=== PATIENT | male | born 1935 | race Caucasian/White ===

== ENCOUNTER 2022-06-27 11:27 | Inpatient (IN) ==
[2022-06-29 05:39] LABS: Basophils % 0.3 %; Eosinophils # 0.4 K/mcL (0.0-0.6); Eosinophils % 5.5 %; Hematocrit 34.8 % (37.5-50.1); Immature Granulocytes % 0.3 % (0-4); Lymphocytes # 0.9 K/mcL (0.6-4.6); Lymphocytes % 13.1 %; Mean Corpuscular HGB Conc 34.5 g/dL (31.6-35.5); Mean Corpuscular Hemoglobin 30.1 pg (28.0-33.3); Mean Corpuscular Volume 87.2 fL (83.0-100.0); Mean Platelet Volume 10.4 fL (9.4-12.4); Monocytes # 1.1 K/mcL (0.0-1.3); Monocytes % 15.2 %; Neutrophils # 4.6 K/mcL (1.6-8.9); Platelet Count 211 K/mcL (140-400); Red Blood Count 3.99 M/mcL (4.19-5.50); Red Cell Distribution Width 12.3 % (11.5-14.5); Segmented Neutrophils % 65.6 %
[2022-06-29 05:50] LABS: Alanine Aminotransferase 23 Units/L (7-52); Albumin 3.1 g/dL (3.5-5.7); Albumin/Globulin Ratio 1.2 (1.1-2.2); Alkaline Phosphatase 113 Units/L (34-104); Aspartate Amino Transferase 27 Units/L (13-39); BUN/Creatinine Ratio 18 (6-26); Bilirubin,Direct 0.1 mg/dL (0.0-0.2); Bilirubin,Indirect 0.2 mg/dL (0.0-1.0); Bilirubin,Total 0.3 mg/dL (0.3-1.0); Blood Urea Nitrogen 11 mg/dL (8-23); Calcium 7.9 mg/dL (8.6-10.3); Carbon Dioxide 26 mEq/L (23-29); Chloride 102 mEq/L (98-107); Globulin 2.6 g/dL (2.4-3.5); Glucose 104 mg/dL (70-105); Osmolality,Calculated 282 (280-300); Potassium 3.4 mEq/L (3.5-5.1); Sodium 136 mEq/L (136-145); Total Protein 5.7 g/dL (6.4-8.9)
[2022-06-29] MEDS: Metoprolol XL (24 HR) Succ 50 MG TAB.ER.24H PO SCH ×2 (08:40→20:41)
[2022-06-29] MEDS: Loratadine 10 MG TABLET PO SCH (08:40)
[2022-06-29] MEDS: Aspirin 81 MG TAB.CHEW PO SCH (08:40)
[2022-06-29] MEDS: Multivit/Ca/Min/Fe/FA 1 TAB TABLET PO SCH (08:40)
[2022-06-29] MEDS: PHENobarbitaL 32.4 MG TABLET PO SCH ×3 (08:40→20:39)
[2022-06-30 05:10] LABS: Hematocrit 37.1 % (37.5-50.1); Hemoglobin 12.3 g/dL (12.9-16.9); Mean Corpuscular HGB Conc 33.2 g/dL (31.6-35.5); Mean Corpuscular Hemoglobin 29.6 pg (28.0-33.3); Mean Corpuscular Volume 89.2 fL (83.0-100.0); Mean Platelet Volume 10.5 fL (9.4-12.4); Platelet Count 238 K/mcL (140-400); Red Blood Count 4.16 M/mcL (4.19-5.50); Red Cell Distribution Width 12.4 % (11.5-14.5); White Blood Count 7.3 K/mcL (4.3-11.1)
[2022-06-30 05:27] LABS: BUN/Creatinine Ratio 16 (6-26); Blood Urea Nitrogen 11 mg/dL (8-23); Calcium 8.1 mg/dL (8.6-10.3); Carbon Dioxide 28 mEq/L (23-29); Chloride 102 mEq/L (98-107); Glucose 102 mg/dL (70-105); Osmolality,Calculated 282 (280-300); Potassium 3.9 mEq/L (3.5-5.1); Sodium 136 mEq/L (136-145)
[2022-06-30] MEDS: *HR* Enoxaparin 40 MG/0.4 ML SYRINGE SQ SCH (05:29)
[2022-06-30] MEDS ORDERED: *HR* Enoxaparin 40 MG/0.4 ML SYRINGE SQ SCH (07:00)
[2022-06-30] MEDS: Aspirin 81 MG TAB.CHEW PO SCH (09:21)
[2022-06-30] MEDS: Multivit/Ca/Min/Fe/FA 1 TAB TABLET PO SCH (09:21)
[2022-06-30] MEDS: Metoprolol XL (24 HR) Succ 50 MG TAB.ER.24H PO SCH ×2 (09:21→21:58)
[2022-06-30] MEDS: Loratadine 10 MG TABLET PO SCH (09:22)
[2022-06-30] MEDS: PHENobarbitaL 32.4 MG TABLET PO SCH ×3 (09:22→21:58)
[2022-07-01] MEDS: *HR* Enoxaparin 40 MG/0.4 ML SYRINGE SQ SCH (04:40)
[2022-07-01] MEDS: Loratadine 10 MG TABLET PO SCH (09:10)
[2022-07-01] MEDS: PHENobarbitaL 32.4 MG TABLET PO SCH ×4 (09:10→23:43)
[2022-07-01] MEDS: Multivit/Ca/Min/Fe/FA 1 TAB TABLET PO SCH (09:10)
[2022-07-01] MEDS: Metoprolol XL (24 HR) Succ 50 MG TAB.ER.24H PO SCH ×2 (09:10→21:39)
[2022-07-01] MEDS: Aspirin 81 MG TAB.CHEW PO SCH (09:10)
[2022-07-01] MEDS ORDERED: PHENobarbitaL 32.4 MG TABLET PO SCH (22:00)
[2022-07-02] MEDS: *HR* Enoxaparin 40 MG/0.4 ML SYRINGE SQ SCH (05:08)
[2022-07-02] MEDS: Aspirin 81 MG TAB.CHEW PO SCH (09:53)
[2022-07-02] MEDS: Multivit/Ca/Min/Fe/FA 1 TAB TABLET PO SCH (09:53)
[2022-07-02] MEDS: Loratadine 10 MG TABLET PO SCH (09:53)
[2022-07-02] MEDS: Metoprolol XL (24 HR) Succ 50 MG TAB.ER.24H PO SCH ×2 (09:53→19:57)
[2022-07-02] MEDS: PHENobarbitaL 32.4 MG TABLET PO SCH ×3 (09:54→19:57)
[2022-07-03] MEDS: *HR* Enoxaparin 40 MG/0.4 ML SYRINGE SQ SCH (04:53)
[2022-07-03] MEDS: PHENobarbitaL 32.4 MG TABLET PO SCH ×3 (09:24→21:32)
[2022-07-03] MEDS: Loratadine 10 MG TABLET PO SCH (09:24)
[2022-07-03] MEDS: Metoprolol XL (24 HR) Succ 50 MG TAB.ER.24H PO SCH ×2 (09:24→21:32)
[2022-07-03] MEDS: Aspirin 81 MG TAB.CHEW PO SCH (09:24)
[2022-07-03] MEDS: Multivit/Ca/Min/Fe/FA 1 TAB TABLET PO SCH (09:24)
[2022-07-03] MEDS ORDERED: Ibuprofen 400 MG TABLET PO PRN (22:51)
[2022-07-04] MEDS: *HR* Enoxaparin 40 MG/0.4 ML SYRINGE SQ SCH (05:18)
[2022-07-04] MEDS: Aspirin 81 MG TAB.CHEW PO SCH (09:24)
[2022-07-04] MEDS: Metoprolol XL (24 HR) Succ 50 MG TAB.ER.24H PO SCH ×2 (09:24→21:18)
[2022-07-04] MEDS: PHENobarbitaL 32.4 MG TABLET PO SCH ×3 (09:24→21:18)
[2022-07-04] MEDS: Loratadine 10 MG TABLET PO SCH (09:24)
[2022-07-04] MEDS: Multivit/Ca/Min/Fe/FA 1 TAB TABLET PO SCH (09:24)
[2022-07-04 20:16] VITALS: O2SAT 94
[2022-07-05] MEDS: *HR* Enoxaparin 40 MG/0.4 ML SYRINGE SQ SCH (05:22)
[2022-07-05 07:19] VITALS: BP 134/68; PULSE 86; RESP 18; TEMP 97.4
[2022-07-05] MEDS: Aspirin 81 MG TAB.CHEW PO SCH (09:25)
[2022-07-05] MEDS: PHENobarbitaL 32.4 MG TABLET PO SCH (09:25)
[2022-07-05] MEDS: Multivit/Ca/Min/Fe/FA 1 TAB TABLET PO SCH (09:25)
[2022-07-05] MEDS: Loratadine 10 MG TABLET PO SCH (09:26)
[2022-07-05] MEDS: Metoprolol XL (24 HR) Succ 50 MG TAB.ER.24H PO SCH (09:26)
== END 2022-07-05 13:09 | DRG 281 ==
LOC: PREOBSVTOIN 12:46 → INPGRE 06-28 21:08
PROVIDERS: ADMIT Family Medicine; ATTEND Family Medicine